=== PATIENT | male | born 1965 | race Caucasian/White ===

== ENCOUNTER → 2023-12-02 | Outpatient (CLI) | payer OTHER ==
--- NOTE | 2023-12-02 08:26 | US ---
EXAMINATION TYPE: US carotid duplex BILAT DATE OF EXAM: 12/02/2023 COMPARISON: NONE CLINICAL INDICATION: Male, 58 years old with history of E78.1 PURE HYPERGLYCERIDEMIA R73.01 IMPAIRED FASTI; TECHNIQUE: Carotid duplex ultrasound examination. Indirect Doppler criteria was utilized. FINDINGS: EXAM MEASUREMENTS: RIGHT: Peak Systolic Velocity (PSV) cm/sec ----- Right CCA: 115.7 ----- Right ICA: 93.0 ----- Right ECA: 116.4 ICA/CCA ratio: 0.8 RIGHT: End Diastole cm/sec ----- Right CCA: 37.2 ----- Right ICA: 32.0 ----- Right ECA: 21.1 LEFT: Peak Systolic Velocity (PSV) cm/sec ----- Left CCA: 115.7 ----- Left ICA: 120.5 ----- Left ECA: 121.9 ICA/CCA ratio: 1.0 LEFT: End Diastole cm/sec ----- Left CCA: 33.3 ----- Left ICA: 38.1 ----- Left ECA: 24.8 VERTEBRALS (direction of flow): Right Vertebral: Antegrade Left Vertebral: Antegrade Rhythm: Normal No significant stenosis IMPRESSION: Less than 50% stenosis of the bilateral carotid bifurcations. Criteria for Assigning % of Stenosis / Diameter reduction (Estimation based on the indirect measurements of the internal carotid artery velocities (ICA PSV). 1. Normal (no stenosis)=ICA PSV < 125 cm/s: ratio < 2.0: ICA EDV<40 cm/s. 2. Less than 50% stenosis=ICA PSV < 125 cm/s: ratio < 2.0: ICA EDV<40 cm/s. 3. 50 to 69% stenosis=ICA PSV of 125 to 230 cm/s: ration 2.0 ? 4.0: ICA EDV 40-100 cm/s. 4. Greater than 70% stenosis to near occlusion= ICA PSV > 230 cm/s: ratio > 4.0: ICA EDV > 100 cm/s. 5. Near occlusion= ICA PSV velocities may be low or undetectable: variable ratio and ICA EDV. 6. Total occlusion=unable to detect flow.
--- NOTE | 2023-12-02 13:14 | CA ---
Exercise Stress Test Report Name: Koby Norman Exam Date: 12/02/2023 08:26 Exam Location: [place] [facility] Ht (in): 71 Wt (lb): 235 BSA: 2.26 Ordering Phys: Cornelia Greene DO Referring Phys: Ivonne Bolanos [facility] Technologist: Clive Armendariz Age: 58 Gender: M : 1965 Procedure CPT: Indications: E78.1 PURE HYPERGLYCERIDEMIA ICD-10 Codes: Patient History: Medications: SEE LIST Meds past 24 hrs: Pretest Chest Pain: STRESS TEST Artem Protocol Exercise Duration (min:sec): 09:[address] Depressions (mm): Angina Score: Lockett Score: Resting HR (bpm): 71 Peak HR (bpm): 151 Resting BP (mmHg): 148 / 98 Peak BP (mmHg): 208 / 0 MPHR: 163 Target HR: 139 % MPHR: 93 METS: 11.2 Total Dose: Peak Dose: Atropine: Double Product: 87698 BP Response: Stress Termination: Reached target heart rate Stress Symptoms: No chest pain or symptoms Stress Summary: ECG ANALYSIS Resting ECG: Stress ECG: CONCLUSIONS Patient underwent exercise stress EKG with a Artem protocol treadmill stress test. Patient exercised into Stage 3 for a total of 9 minutes and 30 sec and reaching a total of 11.2 METS. Patient's maximum heart rate was 151 which represented 92% age- predicted maximum heart rate. Stress EKG findings: At baseline patient's EKG showed normal sinus rhythm, normal axis, no significant ST-T wave abnormalities. At peak exercise, EKG showed no significant change from baseline. Conclusions: 1. Normal EKG response to exercise without evidence of inducible ischemia. 2. Good exercise capacity. Dr. Darwin Ramirez DO (Electronically Signed) Final Date: 02 December 2023 13:13
== END | disposition home or self-care (01) ==
LOC: RADUSWWP 07:37
PROVIDERS: ATTEND Family Medicine
DX: I65.23 Occlusion and stenosis of bilateral carotid arteries (principal); E03.9 Hypothyroidism, unspecified; E78.1 Pure hyperglyceridemia; R73.01 Impaired fasting glucose
CPT/HCPCS: 93017; 93880